=== PATIENT | female | born 1955 | race Caucasian/White ===

== ENCOUNTER 2021-12-19 11:24 | Emergency (ER) | payer MEDICARE, OTHER ==
[~2021-12-19] VITALS: Ht 170.2 cm; Wt 75.7 kg
[2021-12-19] MEDS ORDERED: LIDOCAINE HCL 1% 20 ML VIAL ONE (11:37)
[2021-12-19] MEDS ORDERED: HYDROCODONE/APAP 5-325MG TABLET PO ONE (12:15)
[2021-12-19] MEDS ORDERED: HYDROCODONE/APAP 5-325MG TABLET ONE (12:21)
[2021-12-19] MEDS ORDERED: HYDR-3972 PO (13:30)
[2021-12-19 13:34] VITALS: BP 111/65
--- NOTE | 2021-12-19 13:34 | NUR ---
Patient discharged to home in stable condition. Written and verbal after care instructions given. Patient verbalizes understanding of instructions. Stressed follow up or return to ER for worsening s/s.
== END 2021-12-19 13:35 | disposition home or self-care (01) ==
LOC: ER 11:29
DX: S23.29XA Dislocation of other parts of thorax, initial encounter (principal); W01.0XXA Fall on same level from slipping, tripping and stumbling without subsequent striking against object, initial encounter; Y92.038 Other place in apartment as the place of occurrence of the external cause; I25.10 Atherosclerotic heart disease of native coronary artery without angina pectoris; Z95.5 Presence of coronary angioplasty implant and graft
CPT/HCPCS: 71250; A4663; J3490